=== PATIENT | male | born 1990 | race Caucasian/White ===

== ENCOUNTER 2022-09-28 17:51 | Emergency (ER) | payer OTHER ==
[2022-09-28] MEDS ORDERED: SMZ./TMP. 800/160 MG TABLET ONE (20:49)
[2022-09-28] MEDS ORDERED: CEPHALEXIN 250 MG CAP ONE (20:49)
[2022-09-28] MEDS ORDERED: DIPHENHYDRAMINE 25 MG TAB/CAP ONE (20:49)
[2022-09-28] MEDS ORDERED: IBUPROFEN 400 MG TAB ONE (20:50)
--- NOTE | 2022-09-28 21:04 | ER ---
Nurse's Notes [facility] Name: Frederick Polanco Age: 32 yrs Sex: Male : 1990 Arrival Date: 09/28/2022 Time: 17:51 Bed 9 Private MD: Diagnosis: Infected insect bite, left forearm pustule, left forearm cellulitis Presentation: 09/28 18:25 Chief complaint: Patient states: Bit by unknown insect bite, states, " The bte was ph there this morning when I woke up but it's gotten more swollen throughout the day. I'm also having numbness and tingling in my arm for about an hour and I feel disoriented." Insect bite noted to L forearm w/ blistering present, denies SOB. Coronavirus screen: Vaccine status: Patient reports receiving the 2nd dose of the covid vaccine. Ebola Screen: No symptoms or risks identified at this time. Initial Sepsis Screen: Does the patient meet any 2 criteria? No. Patient's initial sepsis screen is negative. Does the patient have a suspected source of infection? No. Patient's initial sepsis screen is negative. Risk Assessment: Do you want to hurt yourself or someone else? Patient reports no desire to harm self or others. Onset of symptoms was September 28, 2022. 18:25 Method Of Arrival: Ambulatory 18:25 Acuity: TEA 4 ph Triage Assessment: 21:12 Bite description: bite sustained to palmar aspect of left forearm by a spider, animal lg3 information: vaccination(s) is unknown. Historical: - Allergies: 18:28 No Known Allergies; ph - PMHx: 18:28 None; ph - Immunization history:: Adult Immunizations unknown. - Social history:: Smoking status: Patient denies any tobacco usage or history of. - Family history:: not pertinent. Screenin:44 [facility] ED Fall Risk Assessment (Adult) History of falling in the last 3 months, lg3 including since admission No falls in past 3 months (0 pts). Abuse screen: Denies threats or abuse. Denies injuries from another. Nutritional screening: No deficits noted. Tuberculosis screening: No symptoms or risk factors identified. Assessment: 19:44 General: Appears in no apparent distress. comfortable, Behavior is calm, cooperative. lg3 Pain: Complains of pain in palmar aspect of left forearm. Neuro: No deficits noted. Drake Agitation-Sedation Scale (RASS): 0 - Alert and Calm Level of Consciousness is awake, alert, obeys commands, Oriented to person, place, time, situation. Cardiovascular: No deficits noted. Denies chest pain, shortness of breath, Capillary refill < 3 seconds Clubbing of nail beds is absent JVD is absent Patient's skin is warm and dry. Respiratory: No deficits noted. Airway is patent Respiratory effort is even, unlabored, Respiratory pattern is regular, symmetrical. GI: No deficits noted. No signs and/or symptoms were reported involving the gastrointestinal system. : No deficits noted. No signs and/or symptoms were reported regarding the genitourinary system. EENT: No deficits noted. No signs and/or symptoms were reported regarding the EENT system. Derm: Skin is intact, is healthy with good turgor, Skin is dry, Skin is normal, Skin temperature is warm insect bite noted to inner left forearm with reddening of surrounding tissue. Musculoskeletal: No deficits noted. No signs and/or symptoms reported regarding the musculoskeletal system. Circulation, motion, and sensation intact. Range of motion: intact in all extremities. 21:11 Reassessment: Patient appears in no apparent distress at this time. No changes from lg3 previously documented assessment. Patient and/or family updated on plan of care and expected duration. Pain level reassessed. Patient is alert, oriented x 3, equal unlabored respirations, skin warm/dry/pink. Vital Signs: 18:25 BP 142 / 58; Pulse 64; Resp 18; Temp 97.8; Pulse Ox 100% on R/A; Weight 122.47 kg; ph Height 6 ft. 4 in. ; 21:11 BP 136 / 62; Pulse 66; Resp 62; Pulse Ox 100% on R/A; lg3 18:25 Body Mass Index 32.87 (122.47 kg, 193.04 cm) ED Course: 17:53 Patient arrived in ED. am2 18:28 Triage completed. ph 18:29 Arm band placed on. ph 19:26 Isabelle Hernandez, RN is Primary Nurse. lg3 19:44 Patient has correct armband on for positive identification. Bed in low position. Call lg3 light in reach. Side rails up X 1. Door closed. Noise minimized. Warm blanket given. Family accompanied patient. 20:24 Filipe Tom MD is Attending Physician. sp4 21:11 No provider procedures requiring assistance completed. Patient did not have IV access lg3 during this emergency room visit. Administered Medications: 20:48 Drug: Ibuprofen PO 800 mg Route: PO; lg3 20:49 Drug: Trimethoprim-Sulfamethoxazole PO (160 mg-800 mg (DS) 1 tablet Route: PO; lg3 20:49 Drug: Cephalexin PO 500 mg Route: PO; lg3 20:49 Drug: diphenhydrAMINE PO 25 mg Route: PO; lg3 Medication: 21:11 VIS not applicable for this client. lg3 Outcome: 21:04 Discharge ordered by . sp4 21:11 Discharged to home ambulatory. lg3 21:11 Condition: stable 21:11 Discharge instructions given to patient, Instructed on discharge instructions, follow up and referral plans. medication usage, Demonstrated understanding of instructions, follow-up care, medications, Prescriptions given X 2. 21:13 Patient left the ED. lg3 Signatures: Kanwal Schreiber, RN RN Adriane Gilliland Isabelle Cohen, JESSICA RN lg3 Filipe Tom MD MD sp4
--- NOTE | 2022-09-28 21:04 | EDPHYS ---
Physician Documentation [facility] Name: Frederick Polanco Age: 32 yrs Sex: Male : 1990 Arrival Date: 09/28/2022 Time: 17:51 Bed 9 Private MD: ED Physician Filipe Tom HPI: 09/28 20:24 This 32 yrs old Male presents to ER via Ambulatory with complaints of Insect sp4 Bite, Fever, Dizziness. 20:56 Young male presents with left forearm ulcerated lesion with pustule and surrounding sp4 cellulitis starting this morning. Patient states that there may have been an insect or spider bite there. Patient was concerned about developing cellulitis and the redness around the infectious pustule. . Historical: - Allergies: 18:28 No Known Allergies; ph - PMHx: 18:28 None; ph - Immunization history:: Adult Immunizations unknown. - Social history:: Smoking status: Patient denies any tobacco usage or history of. - Family history:: not pertinent. ROS: 20:56 Constitutional: Negative for fever, chills, and weight loss, Eyes: Negative for injury, sp4 pain, redness, and discharge, ENT: Negative for injury, pain, and discharge, Neck: Negative for injury, pain, and swelling, Cardiovascular: Negative for chest pain, palpitations, and edema, Respiratory: Negative for shortness of breath, cough, wheezing, and pleuritic chest pain, Abdomen/GI: Negative for abdominal pain, nausea, vomiting, diarrhea, and constipation, Back: Negative for injury and pain, : Negative for injury, bleeding, discharge, and swelling, MS/Extremity: Negative for injury and deformity, Skin: Negative for injury, positive for left forearm pustule with associated redness Neuro: Negative for headache, weakness, numbness, tingling, and seizure, Psych: Negative for depression, anxiety, Allergy/Immunology: Negative for hives, rash, and allergies Endocrine: Negative for neck swelling, polydipsia, polyuria, polyphagia, and weight changes Hematologic/Lymphatic: Negative for swollen nodes, abnormal bleeding, and unusual bruising Exam: 20:56 Constitutional: This is a well developed, well nourished patient who is awake, alert, sp4 and in no acute distress. Head/Face: Normocephalic, atraumatic. Eyes: Pupils equal round and reactive to light, extra-ocular motions intact. Lids and lashes normal. Conjunctiva and sclera are not injected. Cornea within normal limits. Periorbital areas with no swelling, redness, or edema. ENT: Nares patent. No nasal discharge, no septal abnormalities noted. Tympanic membranes are normal and external auditory canals are clear. Oropharynx with no redness, swelling, or masses, exudates, or evidence of obstruction, uvula midline. Mucous membranes moist. Neck: Trachea midline, no thyromegaly or masses palpated, and no cervical lymphadenopathy. Supple, full range of motion without nuchal rigidity, or vertebral point tenderness. No Meningismus. Chest/axilla: Normal chest wall appearance and motion. Nontender with no deformity. No lesions are appreciated. Cardiovascular: Regular rate and rhythm with a normal S1 and S2. No gallops, murmurs, or rubs. Normal PMI, no JVD. No pulse deficits. Respiratory: Lungs have equal breath sounds bilaterally, clear to auscultation and percussion. No rales, rhonchi or wheezes noted. No increased work of breathing, no retractions or nasal flaring. Abdomen/GI: Soft, non-tender, with normal bowel sounds. No distension or tympany. No guarding or rebound. No evidence of tenderness throughout. Back: No spinal tenderness. No costovertebral tenderness. Skin: Warm, dry with normal turgor. There is a small pustule left forearm with associated area of cellulitis MS/ Extremity: Pulses equal, no cyanosis. Neurovascular intact. Full, normal range of motion. Neuro: Awake and alert, GCS 15, oriented to person, place, time, and situation. Cranial nerves II-XII grossly intact. Motor strength 5/5 in all extremities. Sensory grossly intact. Psych: Awake, alert, with orientation to person, place and time. Behavior, mood, and affect are within normal limits Vital Signs: 18:25 BP 142 / 58; Pulse 64; Resp 18; Temp 97.8; Pulse Ox 100% on R/A; Weight 122.47 kg; ph Height 6 ft. 4 in. ; 21:11 BP 136 / 62; Pulse 66; Resp 62; Pulse Ox 100% on R/A; lg3 18:25 Body Mass Index 32.87 (122.47 kg, 193.04 cm) ph Procedures: 20:56 Performed Local wound care with alcohol prep. sp4 MDM: 20:34 Patient medically screened. sp4 20:56 Differential diagnosis: bacterial infection, Spider bite, infected insect bite, sp4 cellulitis, ulcer, infected puncture wound. Data reviewed: vital signs, nurses notes. ED course: Will prescribe p.o. Bactrim and Keflex for management of infection will advise ibuprofen every 6 hours as needed for pain and swelling. Administered Medications: 20:48 Drug: Ibuprofen PO 800 mg Route: PO; lg3 20:49 Drug: Trimethoprim-Sulfamethoxazole PO (160 mg-800 mg (DS) 1 tablet Route: PO; lg3 20:49 Drug: Cephalexin PO 500 mg Route: PO; lg3 20:49 Drug: diphenhydrAMINE PO 25 mg Route: PO; lg3 Disposition Summary: 09/28/22 21:04 Discharge Ordered Location: Home sp4 Problem: new sp4 Symptoms: have improved sp4 Condition: Stable sp4 Diagnosis - Infected insect bite, left forearm pustule, left forearm cellulitis sp4 Followup: sp4 - With: Private Physician - When: 1 week - Reason: Recheck today's complaints Discharge Instructions: - Discharge Summary Sheet sp4 - Cellulitis, Adult, [id number] sp4 Forms: - Antibiotic Education sp4 Prescriptions: - Cephalexin 500 mg Oral Capsule - take 1 capsule by ORAL route every 8 hours for 10 days; 30 capsule; Refills: 0, sp4 Product Selection Permitted - Bactrim DS 800-160 mg Oral Tablet - take 1 tablet by ORAL route every 12 hours for 10 days; 20 tablet; Refills: 0, sp4 Product Selection Permitted Signatures: Kanwal Schreiber, RN RN Isabelle Hernandez RN RN lg3 Filipe Tom MD MD sp4
[2022-09-28 21:28] VITALS: TEMP 97.8; O2SAT 100
[2022-09-28 21:30] VITALS: BP 136/62
== END 2022-09-28 21:13 | disposition home or self-care (01) ==
LOC: ER 17:51
DX: L03.114 Cellulitis of left upper limb (principal)